=== PATIENT | female | born 1970 | race Caucasian/White ===

== ENCOUNTER → 2018-08-25 | Outpatient (CLI) | payer BC ==
--- NOTE | 2018-08-25 16:48 | KCIC ---
BILATERAL SCREENING MAMMOGRAM, 3-D History: Routine screening. Greater than 100 pound weight loss since prior mammogram. Comparison: Bilateral mammogram May 07, 2014. Technique: MLO and CC digital tomosynthesis (3D) images obtained. Radiologist reviewed these images on dedicated workstation. Findings: Breast Tissue Density C : The breasts are heterogeneously dense, which may obscure small masses. The parenchymal density has increased from the prior study likely due to the provided history of interval weight loss. There is bilateral glandular nodularity. There is a group of microcalcifications in the left breast at the 5:00 position at mid depth. There are no dominant masses or architectural distortion. IMPRESSION: Group of microcalcifications in the lower outer left breast at mid depth. Recommend further evaluation with spot magnification CC and ML digital views. BI-RADS Category 0: Incomplete: Need additional imaging evaluation. The images were reviewed with computer-aided detection. Patient information is entered into reminder system with a target due date for the next screening mammogram. Mammography is the most sensitive method for finding small breast cancers, but it does not detect them all and is not a substitute for careful clinical examination. A negative mammogram does not negate a clinically suspicious finding and should not result in delay in biopsying a clinically suspicious abnormality. "Our facility is accredited by the [employer] Mammography [employer]." Electronically signed by: Jake Tierney MD (08/25/2018 4:45 PM) [id number]
== END | disposition home or self-care (01) ==
LOC: KCIC MAMMO 11:13
PROVIDERS: ATTEND Family Medicine
DX: Z12.31 Encounter for screening mammogram for malignant neoplasm of breast (principal); N64.89 Other specified disorders of breast
CPT/HCPCS: 77063; 77067

== ENCOUNTER → 2018-09-06 | Outpatient (CLI) | payer BC ==
--- NOTE | 2018-09-06 11:06 | KCIC ---
Left breast diagnostic digital mammograms: Reason for examination: Calcifications on screening mammogram. Comparison is made to mammographic exam dated 08/25/2018. Coned magnification views were obtained in CC and true lateral projection. With these additional views, clustered microcalcifications persists in the 5:00 B position. Further evaluation with stereotactic biopsy is recommended. IMPRESSION: New clustered microcalcifications at the 5:00 B position of left breast. Recommend further evaluation with stereotactic biopsy. BI-RADS Category 4: Suspicious. I have discussed these findings with the patient and the patient's physician will be notified about these findings by the nurse navigator. "Our facility is accredited by the [employer] Mammography [employer]." This patient's information has been entered into a reminder system for the patient to be notified with the results of her examination and a target date for the next mammogram. Electronically signed by: Heidi Collier MD (09/06/2018 11:03 AM) [id number]
== END | disposition home or self-care (01) ==
LOC: KCIC MAMMO 10:28
PROVIDERS: ATTEND Family Medicine
DX: R92.1 Mammographic calcification found on diagnostic imaging of breast (principal)
CPT/HCPCS: 77065

== ENCOUNTER → 2018-10-03 | Outpatient (CLI) | payer BC ==
--- NOTE | 2018-10-04 11:59 | RAD ---
Examination: STEREOTACTIC BREAST BIOPSY LT, DIGITAL DIAGNOSTIC LT Clinical History: Suspicious microcalcifications left breast. Comparison/Correlation: 08/25/2018 screen mammographic exam Findings: Procedure: Relative benefits, risks and alternatives to the procedure were discussed and written informed consent was obtained. Target microcalcifications were localized by stereotactic technique in the lateral medial projection. With local 1% lidocaine anesthesia, sterile technique and mammogram stereotactic guidance, percutaneous biopsy was performed with a 9-gauge biopsy needle and vacuum assistance. Multiple samples were obtained and sent to Pathology. The procedure was well tolerated. A marker was placed at the end of procedure. CC and ML views were obtained to confirm clip placement. The patient was sent home in good condition with written and verbal instructions. Impression: Status post stereotactic guided biopsy of microcalcifications. Specimen Radiograph: A radiograph was obtained of the tissue specimen. Multiple microcalcifications are seen in the specimen. The specimen was inked and sent to Pathology. Impression: Target microcalcifications are in the specimen. Pathology is pending.
--- NOTE | 2018-10-04 17:06 | PATHOLOGY ---
[facility] [place] Accession Number: [id number] . 01 Material submitted: . breast - LEFT BREAST MICROCALCIFICATIONS. Modifiers: left . 01 Clinical history: . Left breast microcalcifications . 02 Diagnosis: Breast tissue, left breast stereotactic needle biopsies: - Focal columnar cell change with columnar cell hyperplasia and mild epithelial atypia and with associated calcifications. - Fibrocystic changes with the following components: - Stromal fibrosis. - Mild duct ectasia. - Microcyst formation. (JPM:careers adviser; 10/04/2018) [facility]/10/04/2018 . 02 Comment: Sections of the left breast stereotactic needle biopsy show focal columnar cell change comprised of a terminal duct lobular unit which shows cystic dilatation. The dilated ducts and acini show focal columnar cell hyperplasia and mild epithelial atypia. There are associated coarse calcifications. The remaining breast shows benign fibrocystic changes with a few small microcalcifications. There is no significant atypia or evidence of malignancy. (JPM:careers adviser; 10/04/2018) . 02 Electronically signed: . Wali Knox MD, Pathologist NPI- [id number] . 01 Gross description: . The specimen is received in formalin, labeled "Brook, Danelle, left breast calcifications", is a peach cassette consisting of multiple fibrofatty fragments measuring 2.7 x 2.0 x 0.4 cm in aggregate. The specimen is entirely submitted in A1-A3. Specimen excised at: 1045 on 10/03/18, placed in formalin at: 1050 on 10/03/18, formalin exposure: Approximately 13 hours and 40 minutes. ([facility]; 10/03/2018) [facility] . 02 Pathologist provided ICD-10: N60.12, N60.32, N60.42 . 02 CPT . 699074 Specimen Comment: A courtesy copy of this report has been sent to Specimen Comment: [phone], . Specimen Comment: Report sent to / DR MENDEZ Performed at: 01 [facility] [address], [place] [id number] MD Michael Zaman MD Phone: [phone] Performed at: 02 [facility] [address] [place], [place] [id number] MD Wali Knox MD Phone: [phone]
== END | disposition home or self-care (01) ==
LOC: MAMMO 08:59
PROVIDERS: ATTEND Surgery
DX: R92.1 Mammographic calcification found on diagnostic imaging of breast (principal); N60.42 Mammary duct ectasia of left breast; N60.32 Fibrosclerosis of left breast
CPT/HCPCS: 19085; 77022; 77065; 88305; C1713

== ENCOUNTER → 2019-09-14 | Outpatient (CLI) | payer BC ==
--- NOTE | 2019-09-14 18:31 | KCIC ---
Bilateral digital screening mammograms: Reason for examination: Routine screening. Comparison is made to previous studies dated 08/25/2018 and 05/07/2014. Interpretation was made with the benefit of CAD. The skin and nipples show no abnormalities. No abnormal axillary lymph nodes are seen. The breast parenchyma is heterogeneously dense. (Breast density: Category C.) There continues to be some nodular asymmetry and upper outer quadrant of the right breast at approximately the 10:00 position which is stable. There are however small nodules present posterior and inferiorly in the right breast seen only on oblique view and centrally in the left breast on oblique view. Further evaluation with ultrasound is recommended. There are no new suspicious calcifications. Biopsy clip remains present on the left. Impression: Small nodular densities in the lower right breast on oblique view and in the central left breast on oblique view. Recommend further evaluation with ultrasound. Your patient's mammogram demonstrates that she has dense breast tissue (breast density category C or D), which could hide abnormalities, and if she has other risk factors for breast cancer that have been identified, she might benefit from supplemental screening tests that may be suggested by you as her ordering physician. Dense breast tissue, in and of itself, is a relatively common condition. Therefore, this information is not provided to cause undue concern, but rather to raise your awareness and to promote discussion with your patient regarding the presence of other risk factors, in addition to dense breast tissue. Your patient's mammography results will be sent to her. BI-RAD Category 0: Incomplete. Needs additional imaging evaluation. "Our facility is accredited by the [employer] Mammography Program." This patient's information has been entered into a reminder system for the patient to be notified with the results of her examination and a target date for the next mammogram. Electronically signed by: Heidi Collier MD (09/14/2019 6:28 PM) [id number]
== END | disposition home or self-care (01) ==
LOC: KCIC MAMMO 15:28
PROVIDERS: ATTEND Family Medicine
DX: Z12.31 Encounter for screening mammogram for malignant neoplasm of breast (principal); N64.89 Other specified disorders of breast
CPT/HCPCS: 77067

== ENCOUNTER → 2019-10-17 | Outpatient (CLI) | payer BC ==
--- NOTE | 2019-10-17 18:25 | RAD ---
Examination: Bilateral breast ultrasound, Limited INDICATION: Screening recall for bilateral breast nodular densities. COMPARISON: 09/14/2019 bilateral digital diagnostic mammogram. TECHNIQUE: Grayscale and color Doppler imaging of the bilateral breasts in the area of mammographic interest was performed. FINDINGS: Ultrasound left breast identifies a parallel orientation hypoechoic 4.5 mm mass at the 2:00 position 4 cm from the nipple that has well-defined anterior and posterior margins but has low level internal echoes and indistinct anterior and posterior margins on the antiradial orientation. No internal blood flow. This is probably benign and recommended for short-term follow-up in 6 months. Ultrasound right breast identifies a 3 mm oval mass with low-level internal echoes and no internal vascularity at the 6:00 position 3 cm from the nipple there was represent a probably benign complicated cyst. A similar lesion is identified at the right 8:00 position 3 cm from the nipple. Finally, the 5:00 position 3 cm from the nipple, a 4 mm parallel orientation hypoechoic to isoechoic nodule is identified with low-level internal echoes. Slightly proximal to it is hypoechoic tissue favored to represent retroglandular fat. These are all considered probably benign and recommended for short-term follow-up in 6 months by ultrasound. A 3-D right diagnostic mammogram could be helpful for correlative purposes. IMPRESSION: Probably benign findings in both breasts, likely reflecting fibrocystic changes. Six-month follow-up bilateral targeted ultrasound and right mammogram with 3-D technique are recommended. BI-RADS Category 3 Probably benign findings Patient entered into into a reminder system with target due date for next mammogram
== END | disposition home or self-care (01) ==
LOC: US 07:55
PROVIDERS: ATTEND Family Medicine
DX: R92.8 Other abnormal and inconclusive findings on diagnostic imaging of breast (principal); N63.21 Unspecified lump in the left breast, upper outer quadrant; N60.01 Solitary cyst of right breast
CPT/HCPCS: 76641-50